=== PATIENT | female | born 1970 | race Asian ===

== ENCOUNTER 2022-01-23 10:53 | Emergency (ER) | payer OTHER ==
[~2022-01-23] VITALS: Ht 157.5 cm; Wt 61.2 kg
[2022-01-23 10:54] VITALS: BP 112/49
--- NOTE | 2022-01-23 11:05 | NUR ---
wheelchair assist to bed 11, complete assist into bed at this time
--- NOTE | 2022-01-23 11:27 | NUR ---
DR. JEROME AT BEDSIDE
[2022-01-23] MEDS ORDERED: MECLIZINE 25 MG TAB PO ONE (11:30)
[2022-01-23] MEDS ORDERED: MECL-303 PO (11:35)
--- NOTE | 2022-01-23 11:48 | NUR ---
51 Y/O FEMALE BIBA WITH SON AND C/O OF N/V AFTER TAKING MELATONIN AND IBUPROFEN. PT STATED THEY WOKE UP DIZZY AND NAUSEATED WITH VOMITING GREEN/YELLOW FLUID X 3. PT STATED THAT WHEN THEY DONT MOVE THEIR HEAD, THEY DONT FEEL DIZZY. STATED THEY HAD ALLERGIES X3DAYS AGO AND DID A NASAL SPRAY TO CLEAR OUT NOSE, STATED THAT EARS STARTED HURTING AFTER IT BUT NO FURTHER PAIN OR SWELLING NOTED IN AREA AFTER. NO PAIN NOTED ON PALPATION OF ABDOMEN, NO BRUISING, ABDOMEN IS FLAT, BOWEL SOUNDS ACTIVE. NO FURTHER VOMITING. PMA; HIGH CHOLESTEROL NKA
--- NOTE | 2022-01-23 12:45 | NUR ---
Patient discharged with v/s stable. Written and verbal after care instructions given and explained. Patient alert, oriented and verbalized understanding of instructions. Wheel Chair Assisted with to car. All questions addressed prior to discharge. ID band removed. Patient advised to follow up with PMD. Rx of MECLEZINE given. Patient educated on indication of medication including possible reaction and side effects. Opportunity to ask questions provided and answered.
== END 2022-01-23 12:45 | disposition home or self-care (01) ==
LOC: MED 10:53
DX: H81.399 Other peripheral vertigo, unspecified ear (principal); H81.10 Benign paroxysmal vertigo, unspecified ear; R11.2 Nausea with vomiting, unspecified; E78.5 Hyperlipidemia, unspecified
CPT/HCPCS: 99282; J8597